=== PATIENT | female | born 1950 | race African-American/Black ===

== ENCOUNTER 2021-05-15 16:14 | Emergency (ER) | payer MEDICARE, MEDICAID ==
[~2021-05-15] VITALS: Ht 154.9 cm; Wt 49.8 kg
[2021-05-15 16:33] VITALS: BP 152/92
== END 2021-05-15 20:05 | disposition left against medical advice (07) ==
LOC: ER 16:14
DX: Z53.21 Procedure and treatment not carried out due to patient leaving prior to being seen by health care provider (principal)